=== PATIENT | female | born 1985 | race Caucasian/White ===

== ENCOUNTER 2024-06-05 09:00 | Outpatient (CLI) | payer OTHER, SELFPAY ==
--- NOTE | 2024-06-05 09:03 | MM_ITS ---
WS: [id number] BILATERAL SCREENING DIGITAL BREAST MAMMOGRAPHY WITH HESHAM DISPLACEMENT VIEWS. CAD PERFORMED. HISTORY: SCREENING COMPARISON: None available. Bilateral craniocaudal and mediolateral oblique views are performed with tomosynthesis and SM. Hesham displacement views in CC and MLO projection also performed. Breasts composition: There are scattered areas of fibroglandular density. Retropectoral implants are intact. No implant extravasation or collapse. No suspicious mass or calcif ication within either breast. No nipple retraction. MM/MM scr BI tomosynthesis [id number] IMPRESSION: BI-RADS: 2 - Benign. FOLLOW-UP: 1 Year Follow-up
== END 2024-06-05 09:01 | disposition home or self-care (01) ==
PROVIDERS: PCP Family Medicine; Visit Provider Family Medicine
DX: Z12.31 Encounter for screening mammogram for malignant neoplasm of breast (principal); R92.323 Mammographic fibroglandular density, bilateral breasts; Z98.82 Breast implant status
CPT/HCPCS: 77063; 77067